=== PATIENT | female | born 2000 ===

== ENCOUNTER 2020-07-14 14:36 | Outpatient (CLI) | payer BC, OTHER ==
[~2020-07-14] VITALS: Ht 149.9 cm; Wt 84.2 kg
--- NOTE | 2020-07-14 14:45 | NUR ---
Patient ambulates to LR3 with spouse, changed into gown, FHR/TOCO monitors placed and explained. Patient states "I started leaking like clear thin fluid yesterday around 1000am". Patient denies any regular contractions/vaginal bleeding/decreased movement. Patient states she is on the 7th day of treatment for yeast infection. Plan of care discussed. 1455: SVE and amniotest negative and no fluid noted with exam. 1500: SVE 50/high per Kody MCNEIL and amnitest negative. 1504: Dr. Smith called and notified-see physician notification. 1518: Patient off monitors and discharge instructions given and patient verbalizes understanding and signs paper. Questions answered. 1525: Patient ambulates off unit with spouse at this time.
[2020-07-14] MEDS ORDERED: PRENATAL TABLET PO (14:58)
[2020-07-14 15:18] VITALS: BP 119/61; PULSE 97; TEMP 98.5
== END 2020-07-14 15:25 | disposition home or self-care (01) ==
LOC: LDRO 14:36
DX: O42.913 Preterm premature rupture of membranes, unspecified as to length of time between rupture and onset of labor, third trimester (principal); Z3A.36 36 weeks gestation of pregnancy; Z86.19 Personal history of other infectious and parasitic diseases; Z87.59 Personal history of other complications of pregnancy, childbirth and the puerperium

== ENCOUNTER 2020-07-22 13:52 | Outpatient (CLI) | payer BC, OTHER ==
[~2020-07-22] VITALS: Ht 149.9 cm; Wt 84.1 kg
[~2020-07-22 13:52] MED LIST: PRENATAL TABLET PO
[2020-07-22 14:54] VITALS: BP 115/78; PULSE 79
--- NOTE | 2020-07-22 14:58 | NUR ---
1400 PATIENT HERE FROM HOME WITH COMPLAINTS OF LEAKING FLUID LAST NIGHT. NO CONTRACTIONS FELT BY PATIENT. EFM ON FHT 150 WITH GOOD ACCELERATIONS NOTED. ASSESSMENT COMPLETED. AMNITRACE NEGATIVE. SVE UNCHANGED FROM OFFICE. /HIGH. NO FLUID NOTED WITH SVE. PATIENT DENIES NEEDS. DR ARBOLEDA CALLED AND UPDATED OF ALL ABOVE INFORMATION. ORDERS TO DISMISS TO HOME
[2020-07-22 15:00] VITALS: BP 129/84; PULSE 75
--- NOTE | 2020-07-22 15:06 | NUR ---
1450 NO LEAKING FELT BY PATIENT. NO OTHER CHANGES. ALL DISCHARGE INSTRUCTIONS GIVEN TO PATIENT AND WITH VERBAL UNDERSTANDING.
== END 2020-07-22 14:50 | disposition home or self-care (01) ==
LOC: ZLAB.STJ 13:52 → LDRO 13:52
DX: O41.93X0 Disorder of amniotic fluid and membranes, unspecified, third trimester, not applicable or unspecified (principal); Z3A.39 39 weeks gestation of pregnancy

== ENCOUNTER → 2020-07-27 | Outpatient (CLI) | payer BC, OTHER ==
[~2020-07-27] MED LIST changes: +MOTRIN 800800 MG/TAB PO; +PERCOCET 325 MG1 TA2 PO; +TYLENOL 325MG325 MG PO
== END | disposition still patient (30) ==
LOC: ZCOL.LAB 08:00
DX: Z20.822 Contact with and (suspected) exposure to COVID-19 (principal)

== ENCOUNTER 2020-08-04 09:56 | Outpatient (CLI) | payer BC, OTHER ==
[~2020-08-04] VITALS: Ht 149.9 cm; Wt 88.2 kg
[~2020-08-04 09:56] MED LIST changes: -MOTRIN 800800 MG/TAB PO; -PERCOCET 325 MG1 TA2 PO; -TYLENOL 325MG325 MG PO
--- NOTE | 2020-08-04 10:05 | NUR ---
1005- Pt arrives on unit ambulatory with complaints of a migraine since yesterday, dizziness when standing, and nausea. Pt changes into gown. 1009- Pt into bed, EFM and TOCO on and tracing. O2 sat monitor on and tracing on strip. BP elevated with do frequently. Assessment completed. Pt states headache is "all over". Took oral pain meds last night but did not help. Pt has mild, 1+ pitting edema to BLE. Pt denies VB, LOF, or UCs. +FM per Pt. Call light within reach.
[2020-08-04] MEDS ORDERED: TYLENOL 325MG325 MG PO (10:19)
[2020-08-04 10:30] VITALS: BP 157/95; PULSE 75
[2020-08-04 11:00] VITALS: BP 154/78; PULSE 78
--- NOTE | 2020-08-04 11:00 | NUR ---
1035- Pt repositioned to LL for comfort, difficult to trace FHR. 1039- Pt repostioned to RL, FHR tracing intermittently continued to be adjusted. 1044- FHR tracing with minimal interuptions. 1055- Pt updated on plan of care. Questions answered.
[2020-08-04 11:29] LABS: BASO % 0.4 % (0.0-2.0); EOS % 0.2 % (0-4.0); GRAN % 75.9 % (42.2-75.2); HEMOGLOBIN 10.1 g/dl (12.0-15.0); LYMPH # 1.5 (1.2-3.4); LYMPH % 16.5 % (20.0-51.0); MEAN CELL VOLUME 78 fl (80.0-95.0); MEAN CORPUSCULAR HEMOGLOBIN 24 pg (26.0-32.0); MEAN CORPUSCULAR HGB CONC 31 g/dl (33.0-37.0); MEAN PLATELET VOLUME 12.8 fl (7.4-10.4); MONO # 0.6 (0.1-0.6); MONO % 6.3 % (1.7-9.3); PLATELET COUNT 210 K/mm3 (130-400); RED BLOOD COUNT 4.18 M/mm3 (4.10-5.30)
[2020-08-04 11:30] VITALS: BP 168/92; PULSE 73
[2020-08-04 11:35] LABS: HEMATOCRIT 32.5 % (35.0-45.0)
[2020-08-04 11:41] LABS: ALBUMIN 2.9 gm/dL (3.5-5.0); BILIRUBIN,TOTAL 0.3 mg/dL (0.0-1.0); CALCIUM 8.1 mg/dL (8.4-10.2); CREATININE, serum 0.64 (0.52-1.25); POTASSIUM 4.2 mmol/L (3.4-5.0); TOTAL PROTEIN 5.7 gm/dL (6.4-8.2)
[2020-08-04 11:47] LABS: COLLECTION METHOD CLEAN CATCH
[2020-08-04 11:55] LABS: MUCOUS Present /lpf; PH 6 (5-8); URINE APPEARANCE Cloudy; URINE BACTERIA Rare /hpf; URINE BILIRUBIN Negative (NEGATIVE); URINE BLOOD Negative (NEGATIVE); URINE COLOR Yellow; URINE GLUCOSE Negative (NEGATIVE); URINE KETONE Negative (NEGATIVE); URINE LEUKOCYTE ESTERASE Trace (NEGATIVE); URINE NITRATE Negative (NEGATIVE); URINE PROTEIN(semi-quant) 3+ (NEGATIVE); URINE RBC 0-2 /hpf; URINE UROBILINOGEN Negative (NEGATIVE)
[2020-08-04 12:06] VITALS: BP 142/88; PULSE 77
--- NOTE | 2020-08-04 12:25 | NUR ---
1205- Discussed plan to discharge home, encouraged Pt to rest as much as possible. Pt will collect a 24hr urine and return to the hospital at noon to evaluate BPs and turn in urine collection. Labor precautions discussed. Pt verbalizes understanding. EFM and TOCO off. Pt states headache has not improved with Tylenol. Encouraged warm bath/shower, heating pad or ice packs. Pt up to change into street clothes. 1220- Discharge paperwork given and explained. Urine collection supples given. Pt denies needs or questions. 1225- Pt ambulates off unit in stable condition.
== END 2020-08-04 12:25 | disposition home or self-care (01) ==
LOC: LDRO 09:56 → LDR 10:05 → LDRO 12:25
PROVIDERS: Obstetrics & Gynecology
DX: O26.893 Other specified pregnancy related conditions, third trimester (principal); G43.909 Migraine, unspecified, not intractable, without status migrainosus; H53.8 Other visual disturbances; Z3A.39 39 weeks gestation of pregnancy
CPT/HCPCS: OP

== ENCOUNTER 2020-08-04 23:31 | Inpatient (IN) | payer BC, OTHER ==
[~2020-08-04] VITALS: Ht 151.1 cm; Wt 88.2 kg
[~2020-08-04 23:31] MED LIST changes: +TYLENOL 325MG325 MG PO
[2020-08-05] VITALS (51 sets, daily range): BP systolic 14–168; BP diastolic 73–95; PULSE 71–104; TEMP 97.7–98.2
--- NOTE | 2020-08-05 00:30 | NUR ---
G3L0 at 39.4 weeks gestation to LDR4 by EMS. Patient was brought to [facility] via EMS after having a 3 minute seizure at home. It was reported that her mother witnessed this seizure and that she was incontinent of urine during the episode. Blood pressures were reported to be elevated and patient c/o headache. She was given a 4gm bolus of MgS04 over 10 minutes and then started on MgS04 2gm/hr and prepared for transfer to our hospital. Dr. Caba on unit when patient arrives at 0030. Patient is alert and oriented. Her is with her. She transfers from stretcher to bed with little assist. EFMs explained and applied. FHR 130 bpm and reactive. Irregular CTX per toco, patient denies feeling them. She reports good movement, she denies leaking of fluid or vaginal bleeding. Blood pressure is elevated, see flowsheet. IV to right forearm with MgS04 infusing at 2gm/hr. LR initiated at 50ml/hr on main line. Side rails padded. Toxemia kit at bedside. DTRs +2. [address] F[address] Caba at bedside. SVE 1/high. Discusses plan of care with patient including delivery. [address] Caba. Patient prepped for OR. 0125 YASMANY Sol to room, discussed anesthesia with patient and spouse. 0135 Patient to OR via bed.
[2020-08-05 01:26] LABS: BASO % 0.3 % (0.0-2.0); GRAN # 9.5 (1.4-6.5); GRAN % 82.9 % (42.2-75.2); HEMOGLOBIN 10.5 g/dl (12.0-15.0); LYMPH # 1.4 (1.2-3.4); LYMPH % 11.9 % (20.0-51.0); MEAN CELL VOLUME 76 fl (80.0-95.0); MEAN CORPUSCULAR HEMOGLOBIN 24 pg (26.0-32.0); MEAN CORPUSCULAR HGB CONC 32 g/dl (33.0-37.0); MEAN PLATELET VOLUME 12.5 fl (7.4-10.4); MONO # 0.5 (0.1-0.6); MONO % 4.4 % (1.7-9.3); PLATELET COUNT 222 K/mm3 (130-400); RED BLOOD COUNT 4.32 M/mm3 (4.10-5.30); REDCELL DISTRIBUTION WIDTH-CV 14.1 % (11.5-14.5)
[2020-08-05 01:27] LABS: HEMATOCRIT 32.9 % (35.0-45.0)
[2020-08-05 01:36] LABS: ALBUMIN 3.4 gm/dL (3.5-5.0); BILIRUBIN,TOTAL 0.3 mg/dL (0.0-1.0); CREATININE, serum 0.61 (0.52-1.25); TOTAL PROTEIN 6.6 gm/dL (6.4-8.2)
[2020-08-05 08:53] LABS: MEAN CELL VOLUME 79 fl (80.0-95.0); MEAN CORPUSCULAR HGB CONC 31 g/dl (33.0-37.0); MEAN PLATELET VOLUME 12.6 fl (7.4-10.4); PLATELET COUNT 191 K/mm3 (130-400); RED BLOOD COUNT 3.67 M/mm3 (4.10-5.30)
[2020-08-05 08:54] LABS: HEMATOCRIT 28.8 % (35.0-45.0); MEAN CORPUSCULAR HEMOGLOBIN 25 pg (26.0-32.0)
[2020-08-05 09:00] LABS: ALBUMIN 2.5 gm/dL (3.5-5.0); BILIRUBIN,TOTAL 0.2 mg/dL (0.0-1.0); CALCIUM 7.7 mg/dL (8.4-10.2); CREATININE, serum 0.59 (0.52-1.25); POTASSIUM 3.9 mmol/L (3.4-5.0); TOTAL PROTEIN 5.1 gm/dL (6.4-8.2)
[2020-08-05 09:03] LABS: MAGNESIUM 5.5 mg/dL (1.6-2.3)
--- NOTE | 2020-08-05 11:30 | NUR ---
O2 SAT 0800- 96% RA 0830- 100% RA 0900- 100% RA 0930- 100% RA 1000- 100% RA 1030- 95% RA 1100- 98% RA 1130- 97% RA
--- NOTE | 2020-08-05 14:40 | NUR ---
1440- Pt states feeling pretty well, pain well controlled. Pt assisted to sitting on side of bed, sat for a couple of minutes then assisted back to bed. Pt tolerated well, denied GAVIN, reported mild dizziness. Tolerated well. Pt requests cup of chicken broth.
[2020-08-06 00:30] VITALS: BP 115/75; PULSE 77; TEMP 98.6
[2020-08-06 05:30] VITALS: BP 108/70; PULSE 79; TEMP 98.5
[2020-08-06 07:05] VITALS: BP 115/80; PULSE 81; TEMP 97.9
[2020-08-06 11:14] LABS: MEAN CELL VOLUME 80 fl (80.0-95.0); MEAN CORPUSCULAR HGB CONC 31 g/dl (33.0-37.0); MEAN PLATELET VOLUME 12.3 fl (7.4-10.4); PLATELET COUNT 212 K/mm3 (130-400); RED BLOOD COUNT 3.66 M/mm3 (4.10-5.30); REDCELL DISTRIBUTION WIDTH-CV 14.4 % (11.5-14.5)
[2020-08-06 11:16] LABS: MEAN CORPUSCULAR HEMOGLOBIN 25 pg (26.0-32.0)
[2020-08-06 11:17] LABS: HEMATOCRIT 29.3 % (35.0-45.0)
[2020-08-06 11:27] VITALS: BP 142/99; PULSE 77; TEMP 98.5
[2020-08-06 15:07] VITALS: BP 138/86; PULSE 80; TEMP 98.8
[2020-08-06 20:00] VITALS: BP 138/87; PULSE 86; TEMP 98.4
[2020-08-07] MEDS ORDERED: PERCOCET 325 MG1 TA2 PO (06:45)
[2020-08-07] MEDS ORDERED: MOTRIN 800800 MG/TAB PO (06:46)
[2020-08-07 08:15] VITALS: BP 140/88; PULSE 77; TEMP 98.4
--- NOTE | 2020-08-07 09:25 | NUR ---
Initial visit; Parents thanked [employer] for offering congratulations and God's blessings for the of their son. Last [facility]er thanked family for choosing [facility].
== END 2020-08-07 11:55 | disposition home or self-care (01) | DRG 787 ==
LOC: OB 23:31 → LDR 08-05 00:27 → OB 08-05 02:51 → LDR 08-05 06:00 → OB 08-05 22:40
PROVIDERS: Obstetrics & Gynecology; ADMIT Obstetrics & Gynecology
PROC: 10D00Z1 Extraction of Products of Conception, Low, Open Approach (ICD-10-PCS; principal; 2020-08-05)
DX: O15.1 Eclampsia complicating labor (principal); O99.354 Diseases of the nervous system complicating childbirth; Z37.0 Single live birth; G43.909 Migraine, unspecified, not intractable, without status migrainosus; O99.214 Obesity complicating childbirth; E66.9 Obesity, unspecified; O99.02 Anemia complicating childbirth; D64.9 Anemia, unspecified; O99.62 Diseases of the digestive system complicating childbirth; K21.9 Gastro-esophageal reflux disease without esophagitis; O69.81X0 Labor and delivery complicated by cord around neck, without compression, not applicable or unspecified; O26.893 Other specified pregnancy related conditions, third trimester; H53.8 Other visual disturbances; Z3A.39 39 weeks gestation of pregnancy
CPT/HCPCS: OP; J0690; J1885; J1940; J2270; J2370; J2405; J3475; J7120